=== PATIENT | female | born 1980 | race African-American/Black ===

== ENCOUNTER 2018-10-26 19:14 | Emergency (ER) | payer OTHER ==
[2018-10-26 19:25] VITALS: TEMP 98.1; BMI 30.4
--- NOTE | 2018-10-26 20:46 | PDOC ---
History of Present Illness - General History Source: Patient Exam Limitations: No Limitations - History of Present Illness Initial Comments: 10/26/18 21:25 The patient is a 38 year old female () with no significant past medical history who presents to the emergency department with vaginal spotting for 6 days. The patient states that her lmp was 09/06/28. She states that on onset of her spotting, she went to [facility] by which she was noted to be 6 weeks and 4 days and that she had blood surrounding her placenta. The patient states that she subsequently followed up with her OB . The patient states that this evening around 6 pm she began to experience some heavy suprapubic cramping and some little bleeding. The patient denies any other symptoms or complaints. <Johnnie Vergara - Last Filed: 10/26/18 21:25> <Aneta Sequeira - Last Filed: 10/26/18 23:04> - General Chief Complaint: Vaginal Bleeding Stated Complaint: STOMACH PAIN Time Seen by Provider: 10/26/18 19:50 Past History <Johnnie Vergara - Last Filed: 10/26/18 21:25> - Past Medical History COPD: No HTN: Yes - Suicide/Smoking/Psychosocial Hx Smoking History: Never smoked Hx Alcohol Use: No Drug/Substance Use Hx: No <Aneta Sequeira - Last Filed: 10/26/18 23:04> - Past Medical History Allergies/Adverse Reactions: Allergies Allergy/AdvReac Type Severity Reaction Status Date / Time No Known Allergies Allergy Verified 10/26/18 19:19 Review of Systems - Review of Systems Able to Perform ROS?: Yes Comments:: 10/26/18 21:26 CONSTITUTIONAL: Absent: fever, no chills, no fatigue EYES: Absent: visual changes ENT: Absent: ear pain, no sore throat CARDIOVASCULAR: Absent: chest pain, no palpitations RESPIRATORY: Absent: cough, no SOB GI:(+) suprapubic cramping, vainal spotting. Absent: no nausea, no vomiting, no constipation, no diarrhea GENITOURINARY: Absent: dysuria, no frequency, no hematuria MUSKULOSKELETAL: Absent: back pain, no arthralgia, no myalgia SKIN: Absent: rash NEURO: Absent: headache <Johnnie Vergara - Last Filed: 10/26/18 21:25> *Physical Exam - Vital Signs Last Vital Signs Temp Pulse Resp BP Pulse Ox 98.1 F 96 H 22 H 117/80 100 10/26/18 19:19 10/26/18 19:19 10/26/18 19:19 10/26/18 19:19 10/26/18 19:19 - Physical Exam Comments: 10/26/18 21:27 GENERAL: Well-appearing, well-nourished. No apparent distress. HEENT: Normocephalic, atraumatic. PERRL, EOM intact. CARDIOVASCULAR: Normal S1, S2. Regular rate and rhythm. PULMONARY: Clear to auscultation bilaterally. ABDOMEN: (+)suprapubic cramping/pain Soft, non-distended, non-tender. EXTREMITIES: Normal ROM in all four extremities. No gross deformities. SKIN: Warm, dry. No rash NEUROLOGICAL: No focal neurological deficits. <Johnnie Vergara - Last Filed: 10/26/18 21:25> - Vital Signs Last Vital Signs Temp Pulse Resp BP Pulse Ox 98.1 F 96 H 22 H 117/80 100 10/26/18 19:19 10/26/18 19:19 10/26/18 19:19 10/26/18 19:19 10/26/18 19:19 <Aneta Sequeira - Last Filed: 10/26/18 23:04> Medical Decision Making - Medical Decision Making 10/26/18 23:00 Transvaginal ultrasound reveals a single live intrauterine with estimated gestational age of 7 weeks. heart rate is 132. There is a small subchorionic hemorrhage present. There is no free fluid in the cul-de- sac. 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 <Johnnie Vergara - Last Filed: 10/26/18 21:25> <Aneta Sequeira - Last Filed: 10/26/18 23:04> Diagnosis at time of Disposition: Subchorionic hemorrhage in first trimester Qualifiers: Fetus number: single or unspecified fetus Qualified Code(s): O41.8X10 - Other specified disorders of amniotic fluid and membranes, first trimester, not applicable or unspecified; O46.8X1 - Other antepartum hemorrhage, first trimester - Discharge Dispostion Disposition: HOME Condition at time of disposition: Stable - Patient Instructions Printed Discharge Instructions: DI for Threatened Additional Instructions: PLEASE FOLLOW UP WITH YOUR CAR DRYER AND CONTINUE YOUR PRE IVY CARE
[2018-10-26] MEDS ORDERED: ACETAMINOPHEN 500 MG TABLET (FP) PO STA (23:23)
[2018-10-26 23:36] VITALS: BP 119/73; PULSE 72
[2018-10-26] MEDS ORDERED: ACETAMINOPHEN 325 MG TABLET (FP) ONE (23:38)
== END 2018-10-26 23:37 | disposition home or self-care (01) ==
LOC: JER 19:14
DX: O26.891 Other specified pregnancy related conditions, first trimester (principal); O41.8X10 Other specified disorders of amniotic fluid and membranes, first trimester, not applicable or unspecified; O46.8X1 Other antepartum hemorrhage, first trimester; Z3A.01 Less than 8 weeks gestation of pregnancy
CPT/HCPCS: 36415; 76817-TC; 84702; 86850; 86900; 86901; 99282-25

== ENCOUNTER 2020-03-28 13:05 | Observation (INO) | payer OTHER ==
[2020-03-28 14:36] VITALS: BMI 31.7
[2020-03-28] MEDS ORDERED: LACTATED RINGERS SOLUTION 1,000 ML/1,000 ML INFUS.BAG IV STA (14:41)
--- NOTE | 2020-03-28 15:02 | PD.OB.PROG ---
Past Medical History - Primary Care Physician PCP:: Ioana Glover Documenting Provider Type: Attending - Admission Chief Complaint: spotting and occasional cramps History of Present Illness: 39 y/o at 29 3/7 weeks sent from [facility] / MFM sono today c/o intermittent cramping and spotting. no leaking. +FM. Pt. has had episodes of vb throughout this . No hx ptd. no urinary complaints. BPP at [facility] 02/26 today. Cx appeared long ~3cm per mfm but also cx noted, sent to L&D for prolonged obs and steroid admin. case d/w Dr. Buck and Dr. Glover for history, etc.. History Source: Patient Limitations to Obtaining History: No Limitations - Nursing Documentation Maternal Triage Index: Maternal Triage Index ( Priority 3, Prompt MFTI) Hemorrhage Risk Assessment: Risk Level Medium Risk High Level Risk Factors for None Hemorrhage Medium Level Risk Factors for Four (4) or greater Hemorrhage Low Level Risk Factors for No previous uterine incis,[place] Pregnaancy,No Hemorrhage known bleeding,No history of PPH Nursing Documentation Reviewed: Yes - Past Medical History Cardio/Vascular: HTN (pt. reports hx chr htn pre preg. was on meds before preg) ...: 7 ...Para: 5 ...Term: 5 ...: 0 ...Spon : 0 ...Induced : 1 ...Living Children: 5 ...Multiple Gestation: 0 ...LMP: 09/04/19 ...EDC by Dates: 06/11/20 ...EDC by Sono: 06/10/20 - Smoking History Smoking history: Never smoked Have you smoked in the past 12 months: No - Alcohol/Substance Use Hx Alcohol Use: No Review of Systems Findings/Remarks: see hpi Physical Exam - Obstetrical Vital Signs: Vital Signs Temperature 98.3 F 03/28/20 14:25 Pulse Rate 101 H 03/28/20 14:25 Respiratory Rate 20 03/28/20 14:25 Blood Pressure 100/61 03/28/20 14:25 O2 Sat by Pulse Oximetry (%) Cardiovascular: Yes: WNL Lungs: Clear to auscultation - Abdominal Exam/OB Number of Fetuses: Single Presentation: Vertex Regularity: Irritability Intensity: Mild Monitor Mode: External Heart Rate (range): approp for gest age Decelerations: None - Vaginal Exam/OB Vaginal Exam Deferred: No Vaginal Bleeding: Old Blood Dilatation (cm): cl Effacement (%): 0 Amniotic Membrane Status: Intact (multip ext os.) Presentation: Vertex/Position Problem List - Problems (1) 29 weeks gestation of Problems reviewed: Yes Code(s): Z3A.29 - 29 WEEKS GESTATION OF (2) Spotting affecting in third trimester Code(s): O26.853 - SPOTTING COMPLICATING , THIRD TRIMESTER Assessment/Plan iup at 29 weeks grandmultip. spotting this preg. sono ? marginal sep at L inferior lateral edge. sent for prolonged obs and steroid course admin. pt. also admits mat not be drinking enough water. hr was 114 in aptu earlier and 104 now. 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
[2020-03-28] MEDS ORDERED: BETAMET ACET/BETAMET NA PH 30 MG/5 ML VIAL IM ONE (15:25)
[2020-03-28] MEDS ORDERED: BETAMET ACET/BETAMET NA PH 30 MG/5 ML VIAL ONE (15:57)
[2020-03-28 16:47] LABS: EPI CELLS >36 /uL (0-25.1); HYALINE CASTS 4 /uL (0-3.1); PH,URINE 6.5 (5.0-8.0); URINE APPEARANCE CLEAR; URINE BACTERIA 672 /uL (0-1359); URINE BILIRUBIN NEGATIVE (NEGATIVE); URINE COLOR YELLOW; URINE GLUCOSE (UA) NEGATIVE (NEGATIVE); URINE KETONE NEGATIVE (NEGATIVE); URINE LEUK ESTERASE 1+ (NEGATIVE); URINE NITRITE NEGATIVE (NEGATIVE); URINE PROTEIN TRACE (NEGATIVE); URINE RBC 2 /uL (0-23.9); URINE UROBILINOGEN 0.2 mg/dL (0.2-1.0); URINE WBC 16 /uL (0-25.8)
[2020-03-28] MEDS ORDERED: LACTATED RINGERS SOLUTION 1,000 ML IV SCH (17:30)
[2020-03-28] MEDS ORDERED: CEFAZOLIN 1 GM/D5W 1 GM/50 ML BAG IVPB ONE (20:07)
[2020-03-28] MEDS ORDERED: LACTATED RINGERS SOLUTION 1,000 ML/1,000 ML INFUS.BAG IV SCH (20:15)
[2020-03-28] MEDS ORDERED: DEXTROSE 5%-WATER - 50 ML IVPB ONE (20:43)
[2020-03-28] MEDS ORDERED: ceFAZolin SODIUM 1 GM VIAL ONE (20:43)
--- NOTE | 2020-03-28 20:51 | PN ---
Progress Note (short form) - Note Progress Note: Patient s/p first dose of betamethasone IUP@ 29w3d, with marginal seperation of placenta per MFM, occassional cramping and spotting per histor FHR- 150, moderate variability, positive accelerations, no decelerations, cat1 [place]- no contractions UA- LE positive, nitrite negative,Urine culture pending Ancef x1 close observation for vaginal bleeding
[2020-03-29] MEDS ORDERED: ACETAMINOPHEN 325 MG TABLET (FP) ONE (09:02)
[2020-03-29] MEDS ORDERED: ACETAMINOPHEN 500 MG TABLET (FP) PO PRN (09:06)
[2020-03-29 10:11] VITALS: TEMP 98.6
[2020-03-29] MEDS ORDERED: ACETAMINOPHEN 325 MG TABLET (FP) PO ONE (10:30)
--- NOTE | 2020-03-29 13:06 | DS ---
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 Vital Signs: Vital Signs Temperature 98.6 F 03/29/20 10:09 Pulse Rate 105 H 03/29/20 10:09 Respiratory Rate 20 03/29/20 10:09 Blood Pressure 113/57 L 03/29/20 10:09 O2 Sat by Pulse Oximetry (%) Constitutional: Yes: Well Nourished, No Distress, Calm Eyes: Yes: WNL, Conjunctiva Clear, EOM Intact HENT: Yes: WNL, Atraumatic, Normocephalic Neck: Yes: WNL, Supple, Trachea Midline Cardiovascular: Yes: WNL, Regular Rate and Rhythm Respiratory: Yes: WNL, Regular, CTA Bilaterally Gastrointestinal: Yes: WNL ...Rectal Exam: Yes: WNL Renal/: Yes: WNL Breast(s): Yes: WNL Musculoskeletal: Yes: WNL Extremities: Yes: WNL Integumentary: Yes: WNL Neurological: Yes: WNL, Alert, Oriented ...Motor Strength: WNL Psychiatric: Yes: WNL, Alert, Oriented Delivery, Single - [place] Feeding Plan Initial Plan: Elected not to breastfeed exclusively throughout hospitalization Remarks - Remarks Remarks: 39 yo was sent to hospital with mild spotting and small marginal seperation for betamethasone pt will recieve 2nd betamethasone dose today at 4 pm she has minimal spotting nom pain no contractions plan home follow up next week. Discharge Summary Problems reviewed: Yes Reason For Visit: ADMIT TO OBSERVATION Current Active Problems 29 weeks gestation of (Acute) Spotting affecting in third trimester (Acute) Condition: Good - Instructions - Home Medications Comprehensive Discharge Medication List: Ambulatory Orders Aspirin [ASA -] 81 mg PO DAILY 03/18/20 Vits96/Iron Fum/Folic [ Tablet] 1 each PO DAILY 03/18/20
[2020-03-29 14:05] VITALS: BP 114/67; PULSE 111
[2020-03-29] MEDS ORDERED: BETAMET ACET/BETAMET NA PH 30 MG/5 ML VIAL IM ONE (17:30)
== END 2020-03-29 17:59 | disposition home or self-care (01) ==
LOC: JLDR 13:05
PROVIDERS: ADMIT Obstetrics & Gynecology; ATTEND Obstetrics & Gynecology
DX: O60.03 Preterm labor without delivery, third trimester (principal); Z3A.29 29 weeks gestation of pregnancy
CPT/HCPCS: 81003; 87086; 96372; G0378; U0003